=== PATIENT | male | born 1990 | race Caucasian/White ===

== ENCOUNTER 2017-05-18 02:27 | Emergency (ER) | payer MEDICAID, OTHER ==
--- NOTE | 2017-05-18 02:43 | EDPHY ---
H & P - Personal History Tetanus Vaccine Date: <10yrs - Medical/Surgical History Hx Asthma: No Hx Chronic Respiratory Disease: No Hx Diabetes: No Hx Cardiac Disease: No Hx Renal Disease: No Hx Cirrhosis: No Hx Alcoholism: No Hx HIV/AIDS: No Hx Splenectomy or Spleen Trauma: No Other PMH: PT DENIES, Pt refusing to give information-Jun 2015. - Social History Smoking Status: Current every day smoker Time Seen by Provider: 05/18/17 02:35 HPI/ROS: Chief Complaint: Suicidal ideation HPI: 26-year-old male with a history of depression approached EMS tonight and told that he was feeling suicidal. He was asked to be brought to the hospital. Patient is vague. He states he has is plan but will not share with me. Denies any alcohol or drug use. Normally takes Celexa but has not been taking his medications. Denies any fevers or chills. No recent illness. Patient is initially only mouth and words and then begins to vocalize words after he starts speaking. He has a very unusual affect. ROS: 10 point Review of Systems is negative except as noted in the HPI. PMH: Depression Social History: No smoking, no alcohol, no recreational drug use Family History: non-contributory Physical Exam: Gen: Awake, Alert, No Distress HEENT: Nose: no rhinorrhea Eyes: PERRLA, EOMI Mouth: Moist mucosa Neck: Supple, no JVD Chest: nontender, lungs clear to auscultation Heart: S1, S2 normal, no murmur Abd: Soft, non-tender, no guarding Back: no CVA tenderness, no midline tenderness Ext: no edema, non-tender Skin: no rash Neuro: CN II-XII intact, Sensation grossly intact, Strength 5/5 in bilateral upper and lower extremities (Matthew Hancock) Constitutional: Initial Vital Signs Temperature (C) 38.9 C H 05/18/17 02:42 Heart Rate 81 05/18/17 02:42 Respiratory Rate 16 05/18/17 02:42 Blood Pressure 145/94 H 05/18/17 02:42 O2 Sat (%) 100 05/18/17 02:42 O2 Delivery Mode Room Air Allergies/Adverse Reactions: No Known Allergies Allergy (Verified 05/18/17 02:44) Home Medications: Medication Instructions Recorded NK [No Known Home Meds] 05/18/17 Medical Decision Making ED Course/Re-evaluation: Patient is extremely disorganized. He has been seen by the mental health production honing machine operator who is unable to fully evaluate him. He is suggesting a olanzapine at this time given that he does have psychotic features. I have given him a lens appearing with plan for re-evaluation. His these tox screen is completely negative. 0700 Patient signed out to Dr. Tolentino pending mental health re-evaluation. ( Matthew Hancock) Serial evaluations through the day and the patient remained stable. He smiles but is nonverbal. He has had 2 attempts at mental health evaluation today but he due to non participation and nonverbal so far mental health evaluation is still pending. (Kumar Tolentino) Other Provider: Care is assumed from Dr. Tolentino at 2:35 p.m. with plan for continued psychiatric evaluation. He was noted to have a temperature of 38.9degrees on arrival but his latest temperature taken at 752 this morning is 36.7. Labs reviewed. 1818: Krysta evaluation for [facility]LC. Patient is communicating with her and says he has an autism spectrum disorder. 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 Not currently suicidal. Recommendation of Krysta and Dr. Marcelo is to not initiate a 72 hour hold, and discharge the patient. (Gomez Quiñones) Care Turn Over: Care to Dr. quiñones at 3:00 p.m. (Kumar Tolention) - Data Points Laboratory Results: Laboratory Results 05/18/17 02:45 05/18/17 02:45 Medications Given: Discontinued Medications Olanzapine (Olanzapine) 5 mg PO ONCE ONE Stop: 05/18/17 05:50 Last Admin: 05/18/17 05:57 Dose: 5 mg Departure - Departure Disposition: Home, Routine, Self-Care Clinical Impression: Autism Depression Qualifiers: Depression Type: major depressive disorder Major depression recurrence: single episode Active/Remission status: currently active Major depression episode severity: unspecified Qualified Code(s): F32.9 - Major depressive disorder, single episode, unspecified Condition: Good Instructions: Depression (ED), Suicide Prevention for Adults (ED) Referrals: [facility],. [Clinic] - As per Instructions
[2017-05-18 02:53] LABS: % IMMATURE GRANULYOCYTES 0.2 % (0.0-1.1); ABSOLUTE IMMATURE GRANULOCYTES 0.02 10^3/uL (0.00-0.10); ADD DIFF? NO; ADD MORPH? NO; ADD SCAN? NO; ATYPICAL LYMPHOCYTE FLAG 0 (0-99); FRAGMENT RBC FLAG 0 (0-99); HEMOGLOBIN 15.1 g/dL (13.7-17.5); LEFT SHIFT FLG 0 (0-99); LIPEMIA HEMOLYSIS FLAG 90 (0-99); MEAN CELL HEMOGLOBIN 30.8 pg (27.9-34.1); MEAN CELL HEMOGLOBIN CONCENTR. 35.1 g/dL (32.4-36.7); MEAN CELL VOLUME 87.6 fL (81.5-99.8); MEAN PLATELET VOLUME 9.9 fL (8.7-11.7); PLATELET CLUMPS FLAG 0 (0-99); PLATELET COUNT 212 10^3/uL (150-400); RED BLOOD CELL COUNT 4.91 10^6/uL (4.40-6.38); RED CELL DISTRIBUTION WIDTH 12.4 % (11.5-15.2)
[2017-05-18 03:06] LABS: ANION GAP 12 mEq/L (8-16); CARBON DIOXIDE 24 mEq/l (22-31); CHLORIDE 103 mEq/L (97-110); CREATININE 0.7 mg/dL (0.7-1.3); ETHANOL SERUM < 10 mg/dL (0-10); GLOMERULAR FILTRATION RATE > 60; GLUCOSE 101 mg/dL (70-100); POTASSIUM 3.8 mEq/L (3.5-5.2); SODIUM 139 mEq/L (134-144)
[2017-05-18] MEDS ORDERED: OLANZapine 5 MG TAB PO ONE (05:49)
[2017-05-18 16:31] VITALS: TEMP 97.9
[2017-05-18 21:04] VITALS: BP 136/87; PULSE 93; RESP 14; O2SAT 97
== END 2017-05-18 21:04 | disposition home or self-care (01) ==
LOC: EDUNIT#
DX: F84.0 Autistic disorder (principal); F32.9 Major depressive disorder, single episode, unspecified; F17.200 Nicotine dependence, unspecified, uncomplicated
CPT/HCPCS: 80305; G0480